=== PATIENT | female | born 1960 | race Caucasian/White ===

== ENCOUNTER → 2024-01-12 14:47 | Outpatient (REF) | payer BC, SELFPAY | LOC: HWRAD 14:47 | PROVIDERS: ATTENDING PHYSICIAN Physician Assistant Medical | DX: E03.9 Hypothyroidism, unspecified (principal) | CPT/HCPCS: 76536 ==

== ENCOUNTER → 2024-09-08 14:18 | Outpatient (REF) | payer OTHER, SELFPAY | LOC: HWRAD 14:18 | PROVIDERS: ATTENDING PHYSICIAN Physician Assistant Medical | DX: R74.8 Abnormal levels of other serum enzymes (principal); E03.9 Hypothyroidism, unspecified | CPT/HCPCS: 76700 ==

== ENCOUNTER → 2024-11-05 14:43 | Outpatient (REF) | payer OTHER, SELFPAY | LOC: HWRAD 14:43 | PROVIDERS: ATTENDING PHYSICIAN Physician Assistant Medical | DX: M25.561 Pain in right knee (principal) | CPT/HCPCS: 73564 ==